=== PATIENT | male | born 1960 | race Caucasian/White ===

== ENCOUNTER → 2017-01-11 | Outpatient (CLI) | payer OTHER ==
--- NOTE | 2017-01-11 16:57 | CT ---
EXAMINATION TYPE: CT abdomen pelvis w con DATE OF EXAM: 01/11/2017 4:47 PM REFERENCE: NONE HISTORY: L Quad Pain R10.32 HISTORY: Low back pain x 6 years. REFERENCE: NONE CT DLP: 1605.00 mGy Automated exposure control for dose reduction was used. TECHNIQUE: Helical acquisition through the abdomen and pelvis was obtained following the oral ingesti on of with Oral Contrast and following intravenous administration of 100 mL of Omnipaque 300. The paris a was reformatted in axial, coronal and sagittal projections. FINDINGS: Visualized portions of the lungs are clear. There is no pleural or pericardial fluid. There is a small hiatal hernia. Within the abdomen, the liver is normal. The gallbladder is contracted. There is evidence of old gran ulomatous disease within the spleen. Both adrenal glands are normal. There are multiple simple appearing renal cysts within the left kidney. The largest is in the lower p ole and measures 1.9 cm. There are multiple simple appearing renal cysts on the right. The largest is in the lower pole and measures 13 mm. There is no evidence of nephrolithiasis or hydronephrosis. The pancreas is normal. There is no significant retroperitoneal, iliac or inguinal adenopathy. There is calcification within the prostate gland. The bladder wall appears thickened. This may, in part, be secondary to lack of distention. There is extensive diverticular change involving the sigmoid colon without radiographic evidence of d iverticulitis. The appendix is normal. There is focal thickening involving several loops of small bowel including the third and fourth parts of the duodenum and also proximal jejunum. The distal small bowel appears more normal. No free fluid and no free air is seen. No osseous lesion is seen. IMPRESSION: 1. FOCAL AREAS OF PROXIMAL SMALL BOWEL THICKENING. PLEASE CORRELATE TO EXCLUDE, ENTERITIS. 2. EXTENSIVE UNCOMPLICATED DIVERTICULOSIS OF THE SIGMOID COLON. 3. MULTIPLE, BILATERAL SIMPLE APPEARING RENAL CYSTS. 4. SMALL HIATAL HERNIA. 5. 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 6. THICKENING OF THE BLADDER WALL LIKELY ON THE BASIS OF CHRONIC BLADDER OUTLET OBSTRUCTION.
== END | disposition home or self-care (01) ==
LOC: RADCTMAIN 14:49
PROVIDERS: ATTEND Family Medicine
DX: K57.30 Diverticulosis of large intestine without perforation or abscess without bleeding (principal); N28.1 Cyst of kidney, acquired; K44.9 Diaphragmatic hernia without obstruction or gangrene; N32.89 Other specified disorders of bladder
CPT/HCPCS: 74177; Q9967

== ENCOUNTER 2019-03-27 12:57 | Emergency (ER) | payer OTHER ==
[2019-03-27 13:04] VITALS: BP 125/71; PULSE 81; RESP 20; TEMP 97.6
[2019-03-27] MEDS ORDERED: KETOROLAC 60 MG/2 ML VIAL IM STA (14:42)
[2019-03-27] MEDS ORDERED: predniSONE 50 MG TAB PO STA (14:42)
--- NOTE | 2019-03-27 14:57 | ED ---
General Adult HPI - General Chief complaint: Back Pain/Injury Stated complaint: Back Pain Time Seen by Provider: 03/27/19 13:56 Source: patient, RN notes reviewed, old records reviewed Mode of arrival: ambulatory Limitations: no limitations - History of Present Illness Initial comments: 59-year-old male patient passed no history of chronic lumbar back pain presents ED with exacerbation of lumbar back pain. Patient reports that for approximately last 2 days he has had some mild right paralumbar back pain that radiates into his right posterior leg. Patient states this feels similar to back pain he has experienced in the past. Patient denies any recent falls or trauma, patient has induration strenuous exercise or injury. Patient denies any loss of bowel or bladder control, urinary retention, lower extremity weakness, saddle anesthesia, fevers and chills. Patient is ambulatory. Patient states that he has not had any new or concerning symptoms, states this a mild exacerbation for him. Patient denies any other complaints. Systemic: Pt denies fatigue, myalgia, fever/chills, rash. Pt denies weakness, night sweats, weight loss. Neuro: Pt denies headache, visual disturbances, syncope or pre-syncope. HEENT: Pt denies ocular discharge or irritation, otalgia, rhinorrhea, pharyngitis or notable lymphadenopathy. Cardiopulmonary: Pt denies chest pain, SOB, heart palpitations, dyspnea on exertion. Abdominal/GI: Pt denies abdominal pain, n/v/d. : Pt denies dysuria, burning w/ urination, frequency/urgency. Denies new onset urinary or bowel incontinence. MSK: Pt denies myalgia, loss of strength or function in extremities. Neuro: Pt denies new onset weakness, paresthesias. - Related Data Previous Rx's Medication Instructions Recorded Ibuprofen [Motrin] 600 mg PO Q6HR PRN #40 day 03/27/19 predniSONE 50 mg PO DAILY #4 tab 03/27/19 Allergies Allergy/AdvReac Type Severity Reaction Status Date / Time No Known Allergies Allergy Verified 03/27/19 13:04 Review of Systems ROS Statement: Those systems with pertinent positive or pertinent negative responses have been documented in the HPI. ROS Other: All systems not noted in ROS Statement are negative. Past Medical History Past Medical History: No Reported History History of Any Multi-Drug Resistant Organisms: None Reported Past Surgical History: No Surgical Hx Reported Past Psychological History: No Psychological Hx Reported Smoking Status: Never smoker Past Alcohol Use History: None Reported Past Drug Use History: None Reported General Exam - General Exam Comments Initial Comments: Constitutional: NAD, AOX3, Pt has pleasant affect. HEENT: NC/AT, trachea midline, neck supple, no lymphadenopathy. Posterior pharynx non erythematous, without exudates. External ears appear normal, without discharge. Mucous membranes moist. Eyes PERRLA, EOM intact. There is no scleral icterus. No pallor noted. Cardiopulmonary: RRR, no murmurs, rubs or gallops, no JVD noted. Lungs CTAB in anterior and posterior johnson. No peripheral edema. Abdominal exam: Abdomen soft and non-distended. Abdomen non-tender to palpation in all 4 quadrants. Bowel sounds active in LLQ. No hepatosplenomegaly. No ecchymosis Neuro: CN II-XII grossly intact. No nuchal rigidity. MSK: 5 out of 5 strength quadriceps psoas. 2/4 reflexes in achillies and patellar tendon. Heel toe walking intact. Sensation intact. No posterior calf tenderness bilaterally, homans sign negative bilaterally. Posterior tibialis and radial pulse +2 bilaterally. Sensation intact in upper and lower extremities. Full active ROM in upper and lower extremities, 5/5 stregnth. Limitations: no limitations Course Vital Signs 03/27/19 13:02 Temperature 97.6 F Pulse Rate 81 Respiratory 20 Rate Blood Pressure 125/71 O2 Sat by Pulse 98 Oximetry Medical Decision Making - Medical Decision Making 59-year-old male patient passed no history of chronic lumbar back pain presents ED with exacerbation of lumbar back pain. Patient reports that for approximately last 2 days he has had some mild right paralumbar back pain that radiates into his right posterior leg. Patient states this feels similar to back pain he has experienced in the past. Patient denies any recent falls or trauma, patient has induration strenuous exercise or injury. Patient denies any loss of bowel or bladder control, urinary retention, lower extremity weakness, saddle anesthesia, fevers and chills. Patient is ambulatory. Patient states that he has not had any new or concerning symptoms, states this a mild exacerbation for him. Patient denies any other complaints. Patient vital signs stable, afebrile. Physical exam displayed: 5 out of 5 strength quadriceps psoas. 2/4 reflexes in achillies and patellar tendon. Heel toe walking intact. Sensation intact. No posterior calf tenderness bilaterally, homans sign negative bilaterally. Shared decision making, patient will be treated, we'll forego imaging. Patient discharged, patient follow up with primary care provider as well as orthopedic consult. Patient will return to ER if condition worsens in anyway. Case discussed with Dr. Barnett. Disposition Clinical Impression: Lumbar back pain Disposition: HOME SELF-CARE Condition: Stable Instructions (If sedation given, give patient instructions): Acute Low Back Pain (ED), Chronic Back Pain (ED) Additional Instructions: Patient to adhere to previously discussed treatment plan and will take medication(s) as directed. Patient to follow up with PCP in 1-2 days. Patient to return to ED if symptoms do not improve. Please take medications as directed. Please follow-up with primary care provider in 1-2 days. Please follow-up with orthopedic consult. Prescriptions: Ibuprofen [Motrin] 600 mg PO Q6HR PRN #40 day PRN Reason: Pain predniSONE 50 mg PO DAILY #4 tab Is patient prescribed a controlled substance at d/c from ED?: No Referrals: None,Stated [Primary Care Provider] - 1-2 days Supa Hartmann DO [Doctor of Osteopathic Medicine] - 1-2 days
== END 2019-03-27 15:20 | disposition home or self-care (01) ==
LOC: EC 12:57
DX: M54.5 Low back pain (principal); M79.604 Pain in right leg
CPT/HCPCS: 99283; 96372; J1885; J7512

== ENCOUNTER 2019-04-30 20:33 | Emergency (ER) | payer OTHER ==
[2019-04-30] MEDS ORDERED: MORPHINE SULFATE 4 MG/ML SYRINGE IVP STA (22:04)
--- NOTE | 2019-04-30 22:06 | ED ---
General Adult HPI - General Chief complaint: Extremity Injury, Lower Stated complaint: Fall, Leg injury Time Seen by Provider: 04/30/19 21:58 Source: patient Mode of arrival: wheelchair Limitations: no limitations - History of Present Illness Initial comments: Dictation was produced using [employer] dictation software. please excuse any gr ammatical, word or spelling errors. Chief Complaint: 59-year-old male with no significant past medical history presents with left hip and left knee pain after fall. History of Present Illness: Juliette is a 59-year-old male who presents with left hip and left knee pain after fall. Patient states that he was stepping off of his tailgate. Reports that the staff was slippery causing him to slide. He slipped and fell landing onto his left side. He states his knee was hyperflexed upon landing. He complains of left posterior thigh pain and left knee pain. Patient reports that have an approximately 2-3 hours prior to arrival. She may use any numbness testing and paresthesias to the left lower extremity. Patient is able to bear some weight on his left lower extremity The ROS documented in this emergency department record has been reviewed and confirmed by me. Those systems with pertinent positive or negative responses have been documented in the HPI. All other systems are other negative and/or noncontributory. PHYSICAL EXAM: General Impression: Alert and oriented x3, acute distress secondary to pain HEENT: Normocephalic atraumatic, extra-ocular movements intact, pupils equal and reactive to light bilaterally, mucous membranes moist. Cardiovascular: Heart regular rate and rhythm, S1&S2 audible, no murmurs, rubs or gallops Chest: Lungs clear to auscultation bilaterally, no rhonchi, no wheeze, no rales Abdomen: Bowel sounds present, abdomen soft, non-tender, non-distended, no organomegaly Musculoskeletal: Pulses present and equal in all extremities, no peripheral edema Motor: no focal deficits noted Neurological: CN II-XII grossly intact, no focal motor or sensory deficits noted Skin: Intact with no visualized rashes Psych: Normal affect and mood ED course: 59 old male presents with left lower extremity pain after slip and fall. All signs upon arrival are within acceptable limits. Patient given IV analgesia.Patient given analgesia. X-rays of the lumbar spine hip and left knee were obtained showing no acute processes. Patient able tolerate with minimal complications. Patient told to rest and ice and elevate the left lower extremity. Ice to follow-up with primary care physician upon discharge. Work note provided. - Related Data Previous Rx's Medication Instructions Recorded Ibuprofen [Motrin] 600 mg PO Q6HR PRN #40 day 03/27/19 predniSONE 50 mg PO DAILY #4 tab 03/27/19 Allergies Allergy/AdvReac Type Severity Reaction Status Date / Time No Known Allergies Allergy Verified 03/27/19 13:04 Review of Systems ROS Statement: Those systems with pertinent positive or pertinent negative responses have been documented in the HPI. ROS Other: All systems not noted in ROS Statement are negative. Past Medical History Past Medical History: No Reported History History of Any Multi-Drug Resistant Organisms: None Reported Past Surgical History: Orthopedic Surgery Additional Past Surgical History / Comment(s): sinus sx, R elbow sx Past Psychological History: No Psychological Hx Reported Smoking Status: Never smoker Past Alcohol Use History: None Reported Past Drug Use History: None Reported General Exam Limitations: no limitations Course Vital Signs 04/30/19 21:22 Temperature 97.8 F Pulse Rate 70 Respiratory 20 Rate Blood Pressure 141/96 O2 Sat by Pulse 96 Oximetry Disposition Clinical Impression: Contusion of leg Disposition: HOME SELF-CARE Condition: Good Instructions (If sedation given, give patient instructions): Contusion in Adults (ED) Is patient prescribed a controlled substance at d/c from ED?: No Referrals: None,Stated [Primary Care Provider] - 1-2 days Time of Disposition: 23:49
--- NOTE | 2019-04-30 23:23 | XR ---
EXAM: XR Left Knee, 3 views CLINICAL HISTORY: ITS.REASON XR Reason: Pain TECHNIQUE: Three views of the left knee. COMPARISON: None available FINDINGS: Bones/joints: No evidence of fracture or dislocation. No significant arthritic changes. Soft tissues: No evidence of knee joint effusion. IMPRESSION: No evidence of acute fracture or dislocation.
--- NOTE | 2019-04-30 23:30 | XR ---
EXAM: XR Lumbar Spine, 2 or 3 Views CLINICAL HISTORY: ITS.REASON XR Reason: Pain TECHNIQUE: Frontal and lateral views of the lumbar spine. COMPARISON: None available FINDINGS: Lumbar vertebral height and alignment are within normal limits. No evidence of acute lumbar fracture or subluxation. Mild multilevel lumbar disc disease and spondylosis. Lower lumbar facet joint arthropathy at the L4-5 and L5-S1 levels. IMPRESSION: No evidence of acute lumbar vertebral fracture or subluxation.
--- NOTE | 2019-04-30 23:36 | XR ---
EXAM: XR left Hip + Pelvis CLINICAL HISTORY: ITS.REASON XR Reason: Pain TECHNIQUE: AP pelvis 1 view and left hip 2 views COMPARISON: None available FINDINGS: No evidence of acute pelvic fracture or dislocation. Left hip is unremarkable. No evidence of acute fracture or dislocation. No significant arthritic changes. Calcifications identified in region of prostate. IMPRESSION: No evidence of acute fracture or dislocation.
[2019-05-01 00:10] VITALS: BP 152/83; PULSE 78; RESP 18; TEMP 98.2
== END 2019-05-01 00:09 | disposition home or self-care (01) ==
LOC: EC 20:33
DX: S80.12XA Contusion of left lower leg, initial encounter (principal); M25.552 Pain in left hip; M79.652 Pain in left thigh; W01.0XXA Fall on same level from slipping, tripping and stumbling without subsequent striking against object, initial encounter; Y92.009 Unspecified place in unspecified non-institutional (private) residence as the place of occurrence of the external cause
CPT/HCPCS: 72100; 73502; 73562; 99283; 96374; J2270

== ENCOUNTER 2024-12-24 22:25 | Emergency (ER) | payer MEDICARE, OTHER ==
[2024-12-24 22:32] VITALS: TEMP 98.4
--- NOTE | 2024-12-24 22:47 | ED ---
SOB HPI - General Chief Complaint: Shortness of Breath Stated Complaint: SOB Time Seen by Provider: 12/24/24 22:34 Source: patient, EMS, RN notes reviewed Mode of arrival: EMS Limitations: no limitations - History of Present Illness Initial Comments: This is a 64-year-old male who presents to the emergency department for coughing, congestion, and shortness of breath. States that it started yesterday. Denies any chest pain. Reports a history of some sort of respiratory illness, but is unsure what it is called. States that he does have oxygen to use at home if needed, which he just put on today. The last time he used it was 3 to 4 months ago. He does also use inhalers and breathing treatments regularly. His family has been sick with similar symptoms and patient states that he feels like he did when he had COVID in the past. He was given 2 DuoNeb breathing treatments and 125 mg of Solu-Medrol en route by EMS, which he states was beneficial. MD Complaint: shortness of breath, cough - Related Data Previous Rx's Medication Instructions Recorded Ibuprofen [Motrin] 600 mg PO Q6HR PRN #40 day 03/27/19 predniSONE 50 mg PO DAILY #4 tab 03/27/19 Nirmatrelvir/Ritonavir [Paxlovid 1 pack PO BID 5 Days #20 tab 12/24/24 150-100 mg Dose Pack] Allergies Allergy/AdvReac Type Severity Reaction Status Date / Time No Known Allergies Allergy Verified 03/27/19 13:04 Review of Systems ROS Statement: Those systems with pertinent positive or pertinent negative responses have been documented in the HPI. ROS Other: All systems not noted in ROS Statement are negative. Past Medical History Past Medical History: Hyperlipidemia, Hypertension, Respiratory Disorder History of Any Multi-Drug Resistant Organisms: None Reported Past Surgical History: Orthopedic Surgery Additional Past Surgical History / Comment(s): sinus sx, R elbow sx Past Psychological History: No Psychological Hx Reported Smoking Status: Never smoker Past Alcohol Use History: None Reported Past Drug Use History: Marijuana General Exam Limitations: no limitations General appearance: alert, in no apparent distress Head exam: Present: atraumatic, normocephalic, normal inspection Respiratory exam: Present: rhonchi, decreased breath sounds, prolonged expiratory Cardiovascular Exam: Present: regular rate, normal rhythm Neurological exam: Present: alert, oriented X3, CN II-XII intact Psychiatric exam: Present: normal affect, normal mood Skin exam: Present: warm, dry, intact, normal color. Absent: rash Course Vital Signs 12/24/24 12/24/24 12/25/24 22:26 22:45 00:44 Temperature 98.4 F Pulse Rate 88 75 Respiratory 24 24 18 Rate Blood Pressure 155/96 128/65 O2 Sat by Pulse 100 97 Oximetry Medical Decision Making - Medical Decision Making This is a 54-year-old male who presents to the emergency department for shortness of breath. Was pt. sent in by a medical professional or institution? @ -No Did you speak to anyone other than the patient for history? @ -No Did you review nursing and triage notes? @ -Yes, and I agree, it is accurate with regards to the patient's symptoms. Were old charts reviewed? @ -No Differential Diagnosis? @ -Differential Dyspnea: Coronary syndrome, arrhythmia, tamponade, asthma, COPD, pulmonary embolism, pneumonia, pneumothorax, pulmonary effusion, anaphylaxis, diabetic ketoacidosis, flailed chest, pulmonary contusion, diaphragmatic rupture, anemia, neuromuscular , this is not meant to be an all-inclusive list. EKG interpreted by me (3pts min.)? @ -EKG interpreted by me demonstrating the following: Sinus rhythm. Ventricular rate 86 bpm, SC interval 192 ms, QRS duration 87 ms, QTc 388 ms. X-rays interpreted by me (1pt min.)? @ -Chest x-ray obtained, my interpretation identifies no localized consolidations or infiltrates. CT interpreted by me (1pt min.)? @ -Not obtained U/S interpreted by me (1pt. min.)? @ -Not obtained What testing was considered but not performed? (CT, X-rays, U/S, labs)? Why? @ -None What meds were considered but not given? Why? @ -None Did you discuss the management of the patient with other professionals? @ -No Did you reconcile home meds? @ -No Was smoking cessation discussed for >3mins.? @ -No Was critical care preformed (if so, how long)? @ -No Were there social determinants of health that impacted care today? How? (Homelessness, low income, unemployed, alcoholism, drug addiction, transportation, low edu. Level, literacy, decrease access to med. care, detention, rehab)? @ -No Was there de-escalation of care discussed even if they declined? (Discuss DNR or withdrawal of care, Hospice)? @ -No What co-morbidities impacted this encounter? (DM, HTN, Smoking, COPD, CAD, Cancer, CVA, Hep., AIDS, mental health diagnosis, sleep apnea, morbid obesity)? @ -Respiratory disorder Was patient admitted / discharged? @ -Discharged. Lab work demonstrates signs of dehydration and was otherwise unremarkable. Patient positive for COVID-19. Chest x-ray reveals no acute process. He had already been given 2 DuoNebs and 125 mg of Solu-Medrol by EMS on arrival. While in the emergency department he was given IV fluids, Decadron, decongestant nasal spray, and Mucinex. Patient was overall feeling much better. When discussing disposition he states that he would be more comfortable at home. This would offer the benefit of being able to use nebulizer breathing treatments, which he would not receive in the hospital due to being COVID- positive. He was given very strict return parameters, especially given that he does have a respiratory disorder. Patient expresses understanding and he was discharged home with his son in stable condition. Prescription for Paxlovid provided. He declined the need for a refill on any of his breathing treatments or cough medication. Case discussed with ED attending Dr. Posey. Return precautions reviewed in depth, the patient is instructed to return to the emergency department with any new, worsening, or concerning symptoms. Patient verbalized understanding. Undiagnosed new problem with uncertain prognosis? @ -None Drug Therapy requiring intensive monitoring for toxicity (Heparin, Nitro, Insulin, Cardizem)? @ -None Were any procedures done? @ -None Diagnosis/symptom? @ -COVID-19 Acute, or Chronic, or Acute on Chronic? @ -Acute Uncomplicated (without systemic symptoms) or Complicated (systemic symptoms)? @ -Uncomplicated Side effects of treatment? @ -None Exacerbation, Progression, or Severe Exacerbation] @ -Not applicable Poses a threat to life or bodily function? @ -Unlikely - Lab Data Result diagrams: 12/24/24 22:49 12/24/24 22:49 Lab Results 12/24/24 12/24/24 12/24/24 Range/Units 22:49 22:49 22:49 WBC 6.3 (3.8-10.6) k/uL RBC 4.41 (4.30-5.90) m/uL Hgb 14.7 (13.0-17.5) gm/dL Hct 42.3 (39.0-53.0) % MCV 95.9 (80.0-100.0) fL MCH 33.4 (25.0-35.0) pg MCHC 34.8 (31.0-37.0) g/dL RDW 11.6 (11.5-15.5) % Plt Count 239 (150-450) k/uL MPV 7.5 Neutrophils % (Manual) 56 % Lymphocytes % (Manual) 30 % Monocytes % (Manual) 13 % Eosinophils % (Manual) 1 % Neutrophils # (Manual) 3.53 (1.3-7.7) k/uL Lymphocytes # (Manual) 1.89 (1.0-4.8) k/uL Monocytes # (Manual) 0.82 (0-1.0) k/uL Eosinophils # (Manual) 0.06 (0-0.7) k/uL Nucleated RBCs 0 (0-0) /100 WBC Manual Slide Review Performed RBC Morphology Normal PT 10.4 (10.0-12.5) sec INR 0.9 (<1.2) APTT 19.5 L (22.0-30.0) sec Sodium 136 L (137-145) mmol/L Potassium 4.0 (3.5-5.1) mmol/L Chloride 102 (98-107) mmol/L Carbon Dioxide 22 (22-30) mmol/L Anion Gap 12 mmol/L BUN 31 H (9-20) mg/dL Creatinine 1.44 H (0.66-1.25) mg/dL Est GFR (CKD-EPI)AfAm 58 (>60 ml/min/1.73 sqM) Est GFR (CKD-EPI)NonAf 51 (>60 ml/min/1.73 sqM) Glucose 126 H (74-99) mg/dL Plasma Lactic Acid Bryan (0.7-2.0) mmol/L Calcium 9.1 (8.4-10.2) mg/dL Magnesium 2.3 (1.6-2.3) mg/dL Total Bilirubin 0.5 (0.2-1.3) mg/dL AST 27 (17-59) U/L ALT 28 (4-49) U/L Alkaline Phosphatase 86 (38-126) U/L Troponin I (0.000-0.034) ng/mL NT-Pro-B Natriuret Pep 21 pg/mL Total Protein 6.8 (6.3-8.2) g/dL Albumin 3.8 (3.5-5.0) g/dL Influenza Type A (PCR) (Not Detectd) Influenza Type B (PCR) (Not Detectd) RSV (PCR) (Not Detectd) SARS-CoV-2 (PCR) (Not Detectd) 12/24/24 12/24/24 12/24/24 Range/Units 22:49 22:49 22:49 WBC (3.8-10.6) k/uL RBC (4.30-5.90) m/uL Hgb (13.0-17.5) gm/dL Hct (39.0-53.0) % MCV (80.0-100.0) fL MCH (25.0-35.0) pg MCHC (31.0-37.0) g/dL RDW (11.5-15.5) % Plt Count (150-450) k/uL MPV Neutrophils % (Manual) % Lymphocytes % (Manual) % Monocytes % (Manual) % Eosinophils % (Manual) % Neutrophils # (Manual) (1.3-7.7) k/uL Lymphocytes # (Manual) (1.0-4.8) k/uL Monocytes # (Manual) (0-1.0) k/uL Eosinophils # (Manual) (0-0.7) k/uL Nucleated RBCs (0-0) /100 WBC Manual Slide Review RBC Morphology PT (10.0-12.5) sec INR (<1.2) APTT (22.0-30.0) sec Sodium (137-145) mmol/L Potassium (3.5-5.1) mmol/L Chloride (98-107) mmol/L Carbon Dioxide (22-30) mmol/L Anion Gap mmol/L BUN (9-20) mg/dL Creatinine (0.66-1.25) mg/dL Est GFR (CKD-EPI)AfAm (>60 ml/min/1.73 sqM) Est GFR (CKD-EPI)NonAf (>60 ml/min/1.73 sqM) Glucose (74-99) mg/dL Plasma Lactic Acid Bryan 1.2 (0.7-2.0) mmol/L Calcium (8.4-10.2) mg/dL Magnesium (1.6-2.3) mg/dL Total Bilirubin (0.2-1.3) mg/dL AST (17-59) U/L ALT (4-49) U/L Alkaline Phosphatase (38-126) U/L Troponin I <0.012 (0.000-0.034) ng/mL NT-Pro-B Natriuret Pep pg/mL Total Protein (6.3-8.2) g/dL Albumin (3.5-5.0) g/dL Influenza Type A (PCR) Not Detected (Not Detectd) Influenza Type B (PCR) Not Detected (Not Detectd) RSV (PCR) Not Detected (Not Detectd) SARS-CoV-2 (PCR) Detected A (Not Detectd) - Radiology Data Radiology results: report reviewed, image reviewed Disposition Clinical Impression: COVID-19 Disposition: HOME SELF-CARE Instructions (If sedation given, give patient instructions): Coronavirus Disease 2019 (COVID-19) Additional Instructions: Return to the emergency department with any new, worsening, or concerning symptoms. Take the Paxlovid as prescribed for 5 days. Make sure you do your D uoNeb breathing treatments every 4-6 hours. Take your cough medication as needed. Prescriptions: Nirmatrelvir/Ritonavir [Paxlovid 150-100 mg Dose Pack] 1 pack PO BID 5 Days #20 tab Is patient prescribed a controlled substance at d/c from ED?: No Referrals: None,Stated [Primary Care Provider] - 1-2 days Time of Disposition: 00:33
[2024-12-24] MEDS: OXYMETAZOLINE 0.05% NASL SPRAY 1 SPRAY BOTTLE NASAL STA (23:01)
[2024-12-24 23:11] LABS: ALT 28 U/L (4-49); AST 27 U/L (17-59); African American GFR (CKD) 58 (>60 ml/min/1.73 sqM); Albumin 3.8 g/dL (3.5-5.0); Alkaline Phosphatase 86 U/L (38-126); Anion Gap 12 mmol/L; Blood Urea Nitrogen 31 mg/dL (9-20); Calcium 9.1 mg/dL (8.4-10.2); Carbon Dioxide 22 mmol/L (22-30); Chloride 102 mmol/L (98-107); Glucose 126 mg/dL (74-99); Magnesium 2.3 mg/dL (1.6-2.3); Non-African American GFR(CKD) 51 (>60 ml/min/1.73 sqM); Sodium 136 mmol/L (137-145); Total Bilirubin 0.5 mg/dL (0.2-1.3); Total Protein 6.8 g/dL (6.3-8.2)
[2024-12-24 23:20] LABS: NT-Pro-B-Type Natriuretic Pept 21 pg/mL
[2024-12-24 23:22] LABS: INR 0.9 (<1.2); Prothrombin Time 10.4 sec (10.0-12.5)
[2024-12-24 23:26] LABS: Partial Thromboplastin Time 19.5 sec (22.0-30.0)
[2024-12-24 23:37] LABS: Influenza A Not Detected (Not Detectd); Influenza B Not Detected (Not Detectd); RSV Not Detected (Not Detectd)
[2024-12-24 23:45] LABS: HCT 42.3 % (39.0-53.0); HGB 14.7 gm/dL (13.0-17.5); MCH 33.4 pg (25.0-35.0); MCHC 34.8 g/dL (31.0-37.0); MCV 95.9 fL (80.0-100.0); Mean Platelet Volume 7.5; Platelet Count 239 k/uL (150-450); RBC 4.41 m/uL (4.30-5.90); RDW 11.6 % (11.5-15.5); WBC 6.3 k/uL (3.8-10.6)
[2024-12-24] MEDS: SODIUM CHLORIDE 0.9% 1,000 ML IV STA (23:48)
[2024-12-24] MEDS: guaiFENesin 600 MG TABLET.ER PO STA (23:49)
[2024-12-24] MEDS: DEXAMETHASONE SOD PHOSPHATE 10 MG/ML 1 ML VIAL IVP STA (23:49)
[2024-12-25 00:45] VITALS: BP 128/65; PULSE 75; RESP 18
[2024-12-25 00:54] LABS: Eosinophils # (M) 0.06 k/uL (0-0.7); Lymphocytes # (M) 1.89 k/uL (1.0-4.8); Monocytes # (M) 0.82 k/uL (0-1.0); Neutrophils # (M) 3.53 k/uL (1.3-7.7); Neutrophils % (M) 56 %; Nucleated Red Blood Cells 0 /100 WBC (0-0); RBC Morphology Normal; Total Cells Counted 100
--- NOTE | 2024-12-25 01:09 | XR ---
EXAM: XR Chest, 2 Views CLINICAL HISTORY: ITS.REASON XR Reason: difficulty breathing TECHNIQUE: Frontal and lateral views of the chest. COMPARISON: No relevant prior studies available. FINDINGS: Lungs: Unremarkable. No consolidation. Pleural space: Unremarkable. No pneumothorax. Heart: Cardiomegaly. Mediastinum: Unremarkable. Normal mediastinal contour. Bones/joints: Unremarkable. No acute fracture. IMPRESSION: No acute findings in the chest.
== END 2024-12-25 00:45 | disposition home or self-care (01) ==
LOC: EC 22:25
DX: U07.1 COVID-19 (principal); J98.9 Respiratory disorder, unspecified
CPT/HCPCS: 36415; 93005; 83880; 80053; 83605; 83735; 84484; 85025; 85610; 85730; 87636; 71046; 99285; 96374; 96361; J1100